=== PATIENT | male | born 1950 | race Caucasian/White ===

== ENCOUNTER 2017-10-09 16:41 | Emergency (ER) | payer MEDICARE, OTHER ==
[~2017-10-09 16:41] MED LIST: ISOVUE-370 76%-LOCM 1 ML ONE
[2017-10-09] MEDS ORDERED: Albuterol Sulfate 2.5 mg/0.5 ml Neb ONE (17:33)
[2017-10-09] MEDS ORDERED: Albuterol Sulfate 2.5 mg/3 ml Neb ONE (17:33)
[2017-10-09] MEDS ORDERED: methylPREDNISolone Sod Succ/PF 125 MG/2 ML VIAL ONE (17:47)
[2017-10-09 17:49] LABS: Mean Corpuscular Hemoglobin 33.9 pg (27.0-31.0); Platelet Count 270 thou/uL (130-400); RBC Distribution Width 14.1 % (11.5-14.5); Red Blood Cell (RBC) Count 4.14 mill/uL (4.70-6.10)
[2017-10-09 18:05] LABS: #Basophils 0.1 thou/uL (0.0-0.2); #Eosinphils 0.2 thou/uL (0.0-0.7); #Lymphocytes 1.5 thou/uL (1.20-3.40); #Monocytes 1.1 thou/uL (0.11-0.59); #Neutrophils 8.2 thou/uL (1.40-6.50); %Basophils 0.8 % (0.0-1.0); %Eosinophils 1.6 % (0.0-10.0); %Lymphocytes 13.2 % (21.0-51.0); %Monocytes 10.3 % (0.0-10.0); %Neutrophils 74.2 % (42.0-75.0); PLT Morphology Comment Appears Adequate
[2017-10-09 18:10] LABS: ALT (SGPT) 16 U/L (8-55); AST (SGOT) 30 U/L (5-34); Albumin 3.9 g/dL (3.4-4.8); Alkaline Phosphatase 127 U/L (40-150); Anion Gap 13 mmol/L (10-20); BUN (Urea Nitrogen) 10 mg/dL (8.4-25.7); Bilirubin, Total 1.6 mg/dL (0.2-1.2); Calc. Creatinine Clearance 0 mL/min (70-130); Calcium 8.7 mg/dL (7.8-10.44); Carbon Dioxide 27 mmol/L (23-31); Chloride 100 mmol/L (98-107); Estimated GFR-MDRD Greater than 90; Globulin 3.4 g/dL (2.4-3.5); Glucose 112 mg/dL (80-115); Potassium 3.3 mmol/L (3.5-5.1); Protein, Total 7.3 g/dL (5.8-8.1); Sodium 137 mmol/L (136-145)
[2017-10-09] MEDS ORDERED: Ketorolac Tromethamine 30 MG/ML VIAL ONE (18:38)
--- NOTE | 2017-10-09 18:53 | RAD ---
CHEST ONE VIEW: 10/09/17 HISTORY: 66-year-old male with low back pain and wheezing. FINDINGS: Extensive bilateral bullous emphysema changes in the mid and upper lung zones with some prominent sca rring in the right upper lobe and right perihilar and suprahilar regions which actually appears impro margarito from a prior CT community services officer film from 05/24/17. There is some linear changes in the basis which have more of the appearance of chronic change. Heart size is within normal limits. IMPRESSION: Hyperinflation and bullous emphysema changes and some more linear and parenchymal changes in the righ t upper lobe having the appearance most suggestive of chronic change with actual improvement in the a ppearance when compared to 05/24/17 CT community services officer film. No confluent pneumonia or overt edema. Depending up on concern, short term followup upright PA and lateral chest might be of benefit. POS: JOSE
[2017-10-09 19:30] LABS: INR-International Normal Ratio 1.2; PTT 32.7 SEC (22.9-36.1); Prothrombin Time 15.5 SEC (12.0-14.7)
[2017-10-09] MEDS ORDERED: HYDROcodone/Acetaminophen 10/325 mg Tablet ONE (19:38)
[2017-10-09 19:50] LABS: Troponin I 0.048 ng/mL (< 0.028)
--- NOTE | 2017-10-09 20:34 | CT ---
CT ANGIOGRAM CHEST INCLUDING 3D RENDERIN10/09/17 HISTORY: 66-year-old male with history of chest pain and COPD. There is extensive upper lung zone bullous emphysema changes and extensive bilateral scarring, somewh at greater in the lateral aspect of the right upper lobe. Small hiatal hernia. There is a persistent linear nonobstructing filling defect in a right lower lobe pulmonary artery branch in the same locati on as was demonstrated at the time of 05/24/17 study. Some of the more proximal intraluminal filling d efects seen at the time of the old study have resolved. No evidence for acute pulmonary parenchymal p rocess. Three vessel coronary artery calcific disease. Multiple gallstones within the gallbladder. IMPRESSION: Persistent nonobstructing intraluminal thrombus in one right lower lobe pulmonary artery branch in th e same location as seen on the prior study 05/24/17. Some of the more proximal thrombus in the right p ulmonary artery seen at the time of the old study have resolved. Extensive bilateral scarring and emp hysema change. No evidence for new area of pulmonary artery thrombosis. POS: JOSE
[2017-10-09] MEDS ORDERED: Enoxaparin Sodium 80 MG/0.8 ML SYRINGE ONE (22:35)
[2017-10-09 22:57] LABS: Troponin I 0.045 ng/mL (< 0.028)
--- NOTE | 2017-10-11 15:07 | EKG ---
Test Reason : Blood Pressure : / mmHG Vent. Rate : 100 BPM Atrial Rate : 100 BPM P-R Int : 160 ms QRS Dur : 084 ms QT Int : 358 ms P-R-T Axes : 076 057 086 degrees QTc Int : 461 ms Normal sinus rhythm Nonspecific ST and T wave abnormality Prolonged QT Abnormal ECG Confirmed by STEPHANI SALAZAR MD ([id number]), development editor MOLLY STREETER ([id number]) on 10/11/2017 3:07:08 PM Referred By: MARTIN Confirmed By:STEPHANI SALAZAR MD
== END 2017-10-09 23:46 | disposition home or self-care (01) ==
LOC: ERS 16:41
DX: J44.1 Chronic obstructive pulmonary disease with (acute) exacerbation (principal); R09.1 Pleurisy; I26.99 Other pulmonary embolism without acute cor pulmonale; E78.5 Hyperlipidemia, unspecified; I10 Essential (primary) hypertension; Z87.891 Personal history of nicotine dependence
CPT/HCPCS: 36415; 71045; 71275; 80053; 84484; 85025; 85610; 85730; 93005; 94644; 94760; 96372; 96374; 96375; J1650; J1885; J2930; J7611